=== PATIENT | female | born 1995 | race Caucasian/White ===

== ENCOUNTER 2022-10-29 12:22 | Emergency (ER) | payer OTHER ==
[~2022-10-29] VITALS: Ht 157.5 cm; Wt 68.0 kg
[2022-10-29 12:25] VITALS: O2SAT 100
[2022-10-29] MEDS ORDERED: FAMO10TA41 PO (12:52)
== END 2022-10-29 13:15 | disposition home or self-care (01) ==
LOC: ER 12:22
DX: T17.208A Unspecified foreign body in pharynx causing other injury, initial encounter (principal); R07.89 Other chest pain; Z79.899 Other long term (current) drug therapy
CPT/HCPCS: 71045; A4663